=== PATIENT | female | born 1980 | race Caucasian/White ===

== ENCOUNTER → 2022-06-13 | Outpatient (CLI) | payer BC ==
[~2022-06-13] MED LIST: FERROUS GLUCON324 M1 PO; LISINOPRIL-HCT1 EACH PO; MELOXICAM15 MG PO; OMEPRAZOLE20 MG PO; ROPINIROLE HC0.25 MG PO; ZYRTEC10 M3 PO
[2022-06-13 08:43] LABS: HEMOGLOBIN 9.2 gm/dl (12.3-15.3); RED BLOOD COUNT 5.1 M/UL (4.00-5.10); WHITE BLOOD COUNT 9.3 K/UL (4.5-11.0)
[2022-06-13 09:09] LABS: BUN/CREATININE RATIO 23 (0-10)
== END ==
LOC: OPSV2 08:00
PROVIDERS: Obstetrics & Gynecology
DX: Z01.818 Encounter for other preprocedural examination (principal); N92.6 Irregular menstruation, unspecified
CPT/HCPCS: 36415; 80053; 81001; 85025; 93005; J1756

== ENCOUNTER → 2022-06-13 | Outpatient (CLI) | payer BC | LOC: OPSV 07:55 | DX: D50.9 Iron deficiency anemia, unspecified (principal) | CPT/HCPCS: 96365 ==

== ENCOUNTER → 2022-06-20 | Day surgery (SDC) | payer BC ==
[~2022-06-20] MED LIST changes: +COLACE 100MG C100 MG PO; +HYDROCODON-ACE1 EAC4 PO; +IBUPROFEN800 MG PO; +[UNRECOGNIZED DRUG - OTHER] PO
== END | disposition home or self-care (01) ==
LOC: OR 05:26
DX: C54.1 Malignant neoplasm of endometrium (principal); Z88.0 Allergy status to penicillin; Z79.82 Long term (current) use of aspirin; Z79.899 Other long term (current) drug therapy
CPT/HCPCS: 84703; 93005; J1100; J2001; J2250; J2405; J2704; J2795; J3010